=== PATIENT | male | born 1980 | race African-American/Black ===

== ENCOUNTER 2019-07-27 22:19 | Emergency (ER) | payer SELFPAY ==
[2019-07-27 22:46] VITALS: BMI 32.3
--- NOTE | 2019-07-28 00:50 | PDOC ---
History of Present Illness - General History Source: Patient Exam Limitations: No Limitations - History of Present Illness Initial Comments: 07/28/19 05:01 39 yo M with no past medical history presents to the emergency department with diffuse abdominal pain. Per the patient, <Louis Baptiste - Last Filed: 07/28/19 05:01> <Darlene Black - Last Filed: 07/28/19 06:45> - General Chief Complaint: Diarrhea Stated Complaint: BLACK SOFT STOOL Time Seen by Provider: 07/27/19 23:52 Past History - Past Medical History COPD: No Other medical history: Sleep apnea - Suicide/Smoking/Psychosocial Hx Smoking History: Never smoked Have you smoked in the past 12 months: No Information on smoking cessation initiated: No Hx Alcohol Use: No Drug/Substance Use Hx: No <Louis Baptiste - Last Filed: 07/28/19 05:01> <Darlene Black - Last Filed: 07/28/19 06:45> - Past Medical History Allergies/Adverse Reactions: Allergies Allergy/AdvReac Type Severity Reaction Status Date / Time No Known Allergies Allergy Verified 07/27/19 22:41 Home Medications: Ambulatory Orders Loperamide HCl [Loperamide] 2 mg PO BID PRN #10 tablet 07/28/19 *Physical Exam - Vital Signs Last Vital Signs Temp Pulse Resp BP Pulse Ox 98.8 F 111 H 18 141/91 97 07/27/19 22:42 07/27/19 22:42 07/27/19 22:42 07/27/19 22:42 07/27/19 22:42 <oLuis Baptiste - Last Filed: 07/28/19 05:01> - Vital Signs Last Vital Signs Temp Pulse Resp BP Pulse Ox 98.9 F 92 H 20 138/75 96 07/28/19 05:13 07/28/19 05:13 07/28/19 05:13 07/28/19 05:13 07/28/19 05:13 <Darlene Black - Last Filed: 07/28/19 06:45> ED Treatment Course - LABORATORY CBC & Chemistry Diagram: 07/28/19 01:05 07/28/19 02:15 <Louis Baptiste - Last Filed: 07/28/19 05:01> - LABORATORY CBC & Chemistry Diagram: 07/28/19 01:05 07/28/19 02:15 - ADDITIONAL ORDERS Additional order review: Laboratory Results 07/28/19 07/28/19 02:15 01:05 Sodium 140 Cancelled Potassium 4.0 Cancelled Chloride 108 H Cancelled Carbon Dioxide 28 Cancelled Anion Gap 4 L Cancelled BUN 8.9 Cancelled Creatinine 0.9 Cancelled Est GFR (CKD-EPI)AfAm 125.13 Cancelled Est GFR (CKD-EPI)NonAf 107.97 Cancelled Random Glucose 90 Cancelled Calcium 8.5 Cancelled Total Bilirubin 0.3 Cancelled AST 19 Cancelled ALT 24 Cancelled Alkaline Phosphatase 83 Cancelled Total Protein 5.8 L Cancelled Albumin 3.1 L Cancelled 07/28/19 01:05 RBC 5.22 MCV 85.5 MCHC 33.0 RDW 13.9 MPV 8.0 Neutrophils % 59.8 Lymphocytes % 21.7 Monocytes % 13.5 H Eosinophils % 4.7 H Basophils % 0.3 - Medications Given in the ED: ED Medications Discontinued Medications Generic Name Dose Route Start Last Admin Trade Name Freq PRN Reason Stop Dose Admin Acetaminophen 1,000 mg 07/28/19 00:51 07/28/19 01:15 Ofirmev Injection - IVPB 07/28/19 00:52 1,000 mg ONCE ONE Administration Sodium Chloride 1,000 mls @ 1,000 mls/hr 07/28/19 00:51 07/28/19 01:15 Normal Saline - IV 07/28/19 01:50 1,000 mls/hr ASDIR STA Administration Ondansetron HCl 4 mg 07/28/19 00:51 07/28/19 01:39 Zofran Injection IVPUSH 07/28/19 00:52 4 mg ONCE ONE Administration <Darlene Black - Last Filed: 07/28/19 06:45> *DC/Admit/Observation/Transfer <Louis Baptiste - Last Filed: 07/28/19 05:01> - Discharge Dispostion Decision to Admit order: No <Darlene Black - Last Filed: 07/28/19 06:45> Diagnosis at time of Disposition: Abdominal pain - Discharge Dispostion Disposition: HOME Condition at time of disposition: Fair - Prescriptions Prescriptions: Loperamide HCl [Loperamide] 2 mg PO BID PRN #10 tablet PRN Reason: Diarrhea - Referrals Referrals: Kg Ibanez MD [Staff Physician] - - Patient Instructions Printed Discharge Instructions: DI for Abdominal Pain-Adult Additional Instructions: You were evaluated today abdominal pain and an episode of black stools. All of your labs and a cat scan of your abdomen showed no concerning findings. Please be aware that Pepto Bismol can turn your stools black. At this time you are safe for discharge home. Please follow-up with a primary care doctor in the next 48 hours, your care is not complete until you are evaluated by a primary care doctor. We have provided a referral to you for a primary care doctor or you can call your insurance company for a list of doctors. Return to the Emergency Department for any new/worsening/concerning symptoms.
[2019-07-28] MEDS ORDERED: ACETAMINOPHEN 1000 MG/100 ML VIAL (NON FORMULARY) IVPB ONE (00:51)
[2019-07-28] MEDS ORDERED: SODIUM CHLORIDE 1,000 ML IV STA (00:51)
[2019-07-28] MEDS ORDERED: ONDANSETRON 4 MG/2 ML VIAL IVPUSH ONE (00:51)
[2019-07-28] MEDS ORDERED: ACETAMINOPHEN INJECTION 100 ML IVPB ONE (00:53)
[2019-07-28] MEDS ORDERED: ONDANSETRON 4 MG/2 ML VIAL ONE (00:53)
[2019-07-28 01:13] LABS: BASO % 0.3 % (0-2.0); EOS % 4.7 % (0-4.5); HEMATOCRIT 44.6 % (35.4-49); HEMOGLOBIN 14.7 GM/dL (11.7-16.9); LYMPH % 21.7 % (8-40); MCH 28.2 pg (25.7-33.7); MEAN CELL VOLUME 85.5 fl (80-96); MONO % 13.5 % (3.8-10.2); NEUT % 59.8 % (42.8-82.8); PLATELET COUNT 241 K/MM3 (134-434); RBC 5.22 M/mm3 (4.00-5.60); RDW 13.9 % (11.9-15.9); WHITE BLOOD COUNT 5.1 K/mm3 (4.0-10.0)
--- NOTE | 2019-07-28 01:55 | PDOC ---
Documentation entered by Hina Strong SCRIBE, acting as scribe for Shannen Munguia MD. Shannen Munguia MD: This documentation has been prepared by the Tae hartmann Brenda, SCRIBE, under my direction and personally reviewed by me in its entirety. I confirm that the documentation accurately reflects all work, treatment, procedures, and medical decision making performed by me. Attending Attestation - Resident Resident Name: Louis Baptiste - ED Attending Attestation I have performed the following: I have examined & evaluated the patient, The case was reviewed & discussed with the resident, I agree w/resident's findings & plan, Exceptions are as noted - HPI HPI: 07/28/19 00:54 The patient is a 39 year old male with a significant past medical historyof sleep apnea who presents to the ED with an episode of black loose stools. The patient denies chest pain, shortness of breath, headache and dizziness. Denies fever, chills, nausea, vomiting, and constipation. Denies dysuria, frequency, urgency and hematuria. Allergies: NKA Social History: Denies tobacco use, alcohol use or illciit drug use. - Physicial Exam PE: 07/28/19 01:40 wnwd 39 yo male p/w several days of diarrhea and abd cramping head ncat neck supple lungs cta b/l cvs [id number] abd diffuse tenderness skin warm and dry extremities no edema neuro axox3,ambulatory - Medical Decision Making 07/28/19 01:52 diff diag includes viral illness,colitis,diverticulitis,appendicitis plN LABS,ivf,reassess, consider imaging 07/28/19 01:54 07/28/19 02:29 s/o to Dr Mace
[2019-07-28 02:55] LABS: ALBUMIN 3.1 g/dl (3.4-5.0); BILIRUBIN,TOTAL 0.3 mg/dL (0.2-1); BLOOD UREA NITROGEN 8.9 mg/dL (7-18); CALCIUM 8.5 mg/dL (8.5-10.1); CREATININE 0.9 mg/dL (0.55-1.3); TOT PROT 5.8 g/dl (6.4-8.2)
[2019-07-28 05:14] VITALS: TEMP 98.9
[2019-07-28 06:41] VITALS: BP 121/66; PULSE 84
[2019-07-28] MEDS ORDERED: KETOROLAC TROMETHAMINE 30 MG/1 ML VIAL IVPUSH ONE (06:42)
[2019-07-28] MEDS ORDERED: LOPERAMIDE HCL 1 MG/5 ML UNIT DOSE CUP PO ONE ×2 (06:42→06:48)
[2019-07-28] MEDS ORDERED: KETOROLAC TROMETHAMINE 30 MG/1 ML VIAL ONE (06:46)
[2019-07-28] MEDS ORDERED: LOPERAMIDE HCL 2 MG CAPSULE ONE (06:46)
== END 2019-07-28 07:45 | disposition home or self-care (01) ==
LOC: JER 22:19
PROC: 3E033GC Introduction of Other Therapeutic Substance into Peripheral Vein, Percutaneous Approach (ICD-10-PCS; principal; 2019-07-27)
PROC: 3E033GC Introduction of Other Therapeutic Substance into Peripheral Vein, Percutaneous Approach (ICD-10-PCS; 2019-07-27)
PROC: 3E033NZ Introduction of Analgesics, Hypnotics, Sedatives into Peripheral Vein, Percutaneous Approach (ICD-10-PCS; 2019-07-27)
PROC: 3E0333Z Introduction of Anti-inflammatory into Peripheral Vein, Percutaneous Approach (ICD-10-PCS; 2019-07-27)
DX: R10.84 Generalized abdominal pain (principal)
CPT/HCPCS: 36415; 74176-TC; 80053; 85025; 99282-25; J0131; J7030